=== PATIENT | male | born 1950 | race Caucasian/White ===

== ENCOUNTER → 2018-07-10 | Outpatient (CLI) | payer MEDICARE, BC ==
--- NOTE | 2018-07-10 12:58 | RAD ---
CT Abdomen and Pelvis without contrast History: Microscopic hematuria Technique: Noncontrast CT imaging was performed of the abdomen and pelvis. Multiplanar images are reviewed. Exposure: One or more of the following individualized dose reduction techniques were utilized for this examination: 1. Automated exposure control 2. Adjustment of the mA and/or kV according to patient size 3. Use of iterative reconstruction technique. Comparison: None Findings: There are 2 right renal calculi, largest inferiorly about 2 mm. There are about 8 left renal calculi with the largest about 4 mm. There is no hydronephrosis of either kidney. No ureteral calculus is identified on either side. Accurate evaluation of the abdominal visceral organs is limited without intravenous contrast, no obvious abnormality of the liver, spleen, pancreas. There is no adrenal nodularity. Gallbladder is present without obvious intraluminal abnormality by CT. Evaluation of bowel is somewhat limited without oral contrast, no significant bowel dilatation, free air, free fluid. There is retained stool greater of the ascending through transverse colon. Appendix is not confidently identified if still present. There is some prostate calcifications. There is appearance of mild prominence of urinary bladder gar[place]. There is some minimal fat of the inguinal canals, no bowel. There is minimal spondylosis L4-5. There is some coronary calcification. Impression: 1. There are bilateral renal calculi more numerous on the left. There is no hydronephrosis or ureteral calculus. 2. There is appearance of nonspecific mild diffuse urinary bladder wall thickening, can be seen with cystitis in the appropriate clinical setting although could be due to more chronic urinary outlet obstruction. Electronically signed by: Torey Chung MD (07/10/2018 12:56 PM) [id number]
== END | disposition home or self-care (01) ==
LOC: CT 09:09
PROVIDERS: ATTEND Family Medicine
DX: N20.0 Calculus of kidney (principal); N42.89 Other specified disorders of prostate; M47.896 Other spondylosis, lumbar region; I25.10 Atherosclerotic heart disease of native coronary artery without angina pectoris
CPT/HCPCS: 74176